=== PATIENT | male | born 1990 | race Caucasian/White ===

== ENCOUNTER 2017-12-12 18:46 | Emergency (ER) | payer MEDICAID ==
[2017-12-12] MEDS ORDERED: Diphtheria,Pertussis(Acell),Tetanus Vaccine 0.5 ML SDV IM ONE (19:43)
--- NOTE | 2017-12-12 19:59 | EDM.PDOC ---
ED HPI GENERAL MEDICAL PROBLEM - General Chief Complaint: Laceration Stated Complaint: CUT LEFT THUMB Time Seen by Provider: 12/12/17 19:40 Source of Information: Reports: Patient History Limitations: Reports: No Limitations - History of Present Illness INITIAL COMMENTS - FREE TEXT/NARRATIVE: 27 yo male injured his L thumb with a drill before arrival. His tetanus is not UTD. Onset: Today Onset Date: 12/12/17 Onset Time: 18:30 Duration: Minutes: Location: Reports: Upper Extremity, Left Quality: Reports: Dull Severity: Mild Improves with: Reports: Other (time) Worsens with: Reports: None Context: Reports: Trauma Associated Symptoms: Reports: No Other Symptoms Treatments BLOCK INSPECTOR: Reports: Other (see below) (none) Left Hand Pain Score (Numeric/FACES): 6 - Related Data Allergies Allergy/AdvReac Type Severity Reaction Status Date / Time No Known Allergies Allergy Verified 01/17/14 22:10 Home Meds: Home Meds Ibuprofen 600 mg PO Q6H PRN 10/11/13 [History] Past Medical History - Past Health History Medical/Surgical History: Denies Medical/Surgical History Social & Family History - Tobacco Use Smoking Status *Q: Unknown Ever Smoked Years of Tobacco use: 10 Used Tobacco, but Quit: No Second Hand Smoke Exposure: No - Alcohol Use Days Per Week of Alcohol Use: 1 Number of Drinks Per Day: 0 Total Drinks Per Week: 0 - Recreational Drug Use Recreational Drug Use: No ED ROS GENERAL - Review of Systems Review Of Systems: See Below Constitutional: Reports: No Symptoms Musculoskeletal: Reports: Hand Pain (L distal thumb ) Skin: Reports: Wound (break in skin adjacent to nail on L thumb) Neurological: Reports: No Symptoms ED EXAM, SKIN/RASH Exam: See Below Exam Limited By: No Limitations General Appearance: Alert, WD/WN, No Apparent Distress Neurological: Alert, Oriented, CN II-XII Intact, Normal Cognition, No Motor/ Sensory Deficits Psychiatric: Normal Affect, Normal Mood Skin: Warm, Dry, Normal Color, No Rash, Wound/Incision (small break in skin adjacent to the L thumbnail. No active bleeding. No gaping wounds. No FB's) Location, Skin: Upper Extremity, Left Characteristics: Fine Associated features: Tenderness Course - Vital Signs Text/Narrative:: Wound cleaned and dressed per nursing. Adacel IM given. Last Recorded V/S: Last Vital Signs Temp 36.3 C 12/12/17 19:29 Pulse 71 12/12/17 19:29 Resp 18 12/12/17 19:29 BP 119/76 12/12/17 19:29 Pulse Ox 99 12/12/17 19:29 - Orders/Labs/Meds Orders: Active Orders 24 hr Category Date Time Status Vaccines to be Administered [RC] PER UNIT ROUTINE Care 12/12/17 19:43 Active Meds: Medications Discontinued Medications Generic Name Dose Route Start Last Admin Trade Name Carolyn PRN Reason Stop Dose Admin Diphtheria/Tetanus/Acell Pertussis 0.5 ml 12/12/17 19:43 Adacel IM 12/12/17 19:44 .ONCE ONE Departure - Departure Time of Disposition: 20:00 Disposition: Home, Self-Care 01 Condition: Good Clinical Impression: Laceration of thumb Qualifiers: Encounter type: initial encounter Damage to nail status: without damage Foreign body presence: without foreign body Laterality: left Qualified Code(s): S61.012A - Laceration without foreign body of left thumb without damage to nail , initial encounter - Discharge Information Referrals: PCP,None [Primary Care Provider] - Forms: ED Department Discharge Additional Instructions: Keep wound clean x 3 days. Take acetaminophen as needed for pain relief per package instructions. Clean wound twice daily with soap and water, dry, apply antibiotic ointment and a new dressing. Recheck here or in the clinic for signs of infection. - My Orders Last 24 Hours: My Active Orders 12/12/17 19:43 Vaccines to be Administered [RC] PER UNIT ROUTINE - Assessment/Plan Last 24 Hours: My Active Orders 12/12/17 19:43 Vaccines to be Administered [RC] PER UNIT ROUTINE
== END 2017-12-12 20:10 | disposition home or self-care (01) ==
LOC: JP.ED 18:46
DX: S61.012A Laceration without foreign body of left thumb without damage to nail, initial encounter (principal); Z23 Encounter for immunization; W31.9XXA Contact with unspecified machinery, initial encounter
CPT/HCPCS: 90471; 90715; 99283-25

== ENCOUNTER 2018-02-27 11:10 | Emergency (ER) | payer MEDICAID ==
--- NOTE | 2018-02-27 13:04 | EDM.PDOCBH ---
ED HPI GENERAL MEDICAL PROBLEM - General Chief Complaint: Behavioral/Psych Stated Complaint: EVAL Time Seen by Provider: 02/27/18 11:30 Source of Information: Reports: Patient, Family History Limitations: Reports: No Limitations - History of Present Illness INITIAL COMMENTS - FREE TEXT/NARRATIVE: 27-year-old male who claims she's been acting out in his sleep and a violent behavior, threatening his etc. He was recently started on clonazepam but that "made it worse". He has seen his primary provider about this, came into the emergency room today because he wouldn't answer his phone call. Onset: Unknown/Unsure (Patient claims it's been going on for a couple of years) - Related Data Allergies Allergy/AdvReac Type Severity Reaction Status Date / Time No Known Allergies Allergy Verified 01/17/14 22:10 Home Meds: Home Meds Ibuprofen 600 mg PO Q6H PRN 10/11/13 [History] Past Medical History - Past Health History Medical/Surgical History: Denies Medical/Surgical History Social & Family History - Tobacco Use Smoking Status *Q: Unknown Ever Smoked Years of Tobacco use: 14 Packs/Tins Daily: 1 Used Tobacco, but Quit: No Second Hand Smoke Exposure: No - Caffeine Use Caffeine Use: Reports: Soda - Alcohol Use Days Per Week of Alcohol Use: 1 Number of Drinks Per Day: 0 Total Drinks Per Week: 0 - Recreational Drug Use Recreational Drug Use: No ED ROS GENERAL - Review of Systems Review Of Systems: ROS reveals no pertinent complaints other than HPI. ED EXAM, BEHAVIORAL HEALTH - Physical Exam Exam: See Below Exam Limited By: No Limitations General Appearance: Alert, No Apparent Distress Respiratory/Chest: No Respiratory Distress Cardiovascular: Regular Rate, Rhythm Neurological: Alert, Oriented x 3 Psychiatric: Alert, Normal Affect COURSE, BEHAVIORAL HEALTH COMP - Course Vital Signs: Last Vital Signs Temp 96.4 F 02/27/18 11:28 Pulse 68 02/27/18 11:28 Resp 18 02/27/18 11:28 BP 114/76 02/27/18 11:28 Pulse Ox 100 02/27/18 11:28 Orders, Labs, Meds: Active Orders 24 hr Category Date Time Status DRUG SCREEN, URINE [URCHEM] Stat Lab 02/27/18 12:11 Ordered Laboratory Tests 02/27/18 02/27/18 02/27/18 Range/Units 12:09 12:09 12:11 WBC 6.3 (4.5-11.0) K/uL RBC 4.88 (4.30-5.90) M/uL Hgb 15.3 H (12.0-15.0) g/dL Hct 44.2 (40.0-54.0) % MCV 91 (80-98) fL MCH 31 (27-31) pg MCHC 35 (32-36) % Plt Count 252 (150-400) K/uL Neut % (Auto) 69 H (36-66) % Lymph % (Auto) 18 L (24-44) % [place] % (Auto) 10 H (2-6) % Eos % (Auto) 2 (2-4) % Baso % (Auto) 0 (0-1) % Sodium 143 (140-148) mmol/L Potassium 3.6 (3.6-5.2) mmol/L Chloride 105 (100-108) mmol/L Carbon Dioxide 28 (21-32) mmol/L Anion Gap 10.3 (5.0-14.0) mmol/L BUN 15 (7-18) mg/dL Creatinine 0.8 (0.8-1.3) mg/dL Est Cr Clr Drug Dosing 106.48 mL/min Estimated GFR (MDRD) > 60 (>60) Glucose 86 (74-106) mg/dL Calcium 8.8 (8.5-10.1) mg/dL Urine Opiates Screen Negative (NEGATIVE) Ur Oxycodone Screen Negative (NEGATIVE) Urine Methadone Screen Negative (NEGATIVE) Ur Propoxyphene Screen Negative (NEGATIVE) Ur Barbiturates Screen Negative (NEGATIVE) Ur Tricyclics Screen Negative (NEGATIVE) Ur Phencyclidine Scrn Negative (NEGATIVE) Ur Amphetamine Screen Negative (NEGATIVE) U Methamphetamines Scrn Negative (NEGATIVE) Urine MDMA Screen Negative (NEGATIVE) U Benzodiazepines Scrn Negative (NEGATIVE) U Cocaine Metab Screen Negative (NEGATIVE) U Marijuana (THC) Screen Negative (NEGATIVE) Re-Assessment/Re-Exam: Patient does have an appointment set up in March, I also talked to Dr. Douglas his primary provider. Since he feels he worsened on the clonazepam, I told him to stop the medication. They may want to consider separate sleeping arrangements until things improve. He then said he was even scared to sleep alone because he might "walk into a cristina". I told him that even know people do things in their sleep they rarely actually do violent things because there subconscious will keep him from doing it and I think he is probably exaggerating the condition for other reasons. Departure - Departure Time of Disposition: 13:29 Disposition: Home, Self-Care 01 Condition: Good Clinical Impression: Sleep disorder - Discharge Information Instructions: Night Terror, Pediatric Referrals: PCP,None [Primary Care Provider] - Forms: ED Department Discharge Care Plan Goals: Stop clonazepam, it would be best to be sleeping under no influence of any drug. You may want to consider separate sleeping arrangements until things improve. Delmer Martinez may be able to see you sooner than March, he returns on Tuesday and you may be able to call the clinic and get something sooner. - My Orders Last 24 Hours: My Active Orders 02/27/18 12:11 DRUG SCREEN, URINE [URCHEM] Stat - Assessment/Plan Last 24 Hours: My Active Orders 02/27/18 12:11 DRUG SCREEN, URINE [URCHEM] Stat
== END 2018-02-27 13:25 | disposition home or self-care (01) ==
LOC: JP.ED 11:10
DX: G47.9 Sleep disorder, unspecified (principal)
CPT/HCPCS: 36415; 80048; 80305; 85025; 99285

== ENCOUNTER 2018-04-23 15:35 | Emergency (ER) | payer MEDICAID ==
--- NOTE | 2018-04-23 16:07 | EDM.PDOC ---
ED HPI GENERAL MEDICAL PROBLEM - General Chief Complaint: Laceration Stated Complaint: CUT ON GENITALS Time Seen by Provider: 04/23/18 15:40 Source of Information: Reports: Patient History Limitations: Reports: No Limitations - History of Present Illness INITIAL COMMENTS - FREE TEXT/NARRATIVE: 27-year-old male developed some penile bleeding after intercourse. No significant pain or symptoms. He thought he had a laceration so came in to be checked. No dysuria. No recent symptoms or illness. Onset: Sudden Duration: Hour(s): (Within the last hour) Associated Symptoms: Reports: No Other Symptoms Penis Pain Score (Numeric/FACES): 0 - Related Data Allergies Allergy/AdvReac Type Severity Reaction Status Date / Time No Known Allergies Allergy Verified 01/17/14 22:10 Home Meds: Home Meds Ibuprofen 600 mg PO Q6H PRN 10/11/13 [History] Past Medical History - Past Health History Medical/Surgical History: Denies Medical/Surgical History Respiratory History: Reports: Sleep Apnea Other Respiratory History: C PAP at night Genitourinary History: Reports: Other (See Below) Other Genitourinary History: blood scant from meatus states after sex believe to have past small kidney stone Social & Family History - Tobacco Use Years of Tobacco use: 14 Packs/Tins Daily: 0.2 - Caffeine Use Caffeine Use: Reports: None - Recreational Drug Use Recreational Drug Use: No ED ROS GENERAL - Review of Systems Review Of Systems: See Below Constitutional: Denies: Fever Respiratory: Denies: Shortness of Breath GI/Abdominal: Denies: Abdominal Pain, Nausea, Vomiting : Reports: Hematuria Skin: Denies: Bruising Neurological: Reports: No Symptoms ED EXAM, SKIN/RASH Exam: See Below Exam Limited By: No Limitations General Appearance: Alert, No Apparent Distress Respiratory/Chest: No Respiratory Distress (Male) Exam: Other (Exam of the genitalia is completely normal other than some bleeding at the urethral meatus. No tenderness of the penis, no swelling or bruising or asymmetry) Course - Vital Signs Last Recorded V/S: Last Vital Signs Temp 99.1 F 04/23/18 15:42 Pulse 71 04/23/18 15:42 Resp 18 04/23/18 15:42 BP 103/64 04/23/18 15:42 Pulse Ox - Re-Assessments/Exams Free Text/Narrative Re-Assessment/Exam: 04/23/18 16:05 Discussed with urology, he felt it was possibly prostatitis although it appears more like a distal urethral injury. He did urinate, passed a small clot in the urine was clear. He'll be placed on Cipro 500 twice a day at the request of the urologist for 7-10 days, and avoid intercourse until completely healed. Departure - Departure Time of Disposition: 16:19 Disposition: Home, Self-Care 01 Condition: Good Clinical Impression: Urethral injury, closed Qualifiers: Encounter type: initial encounter Qualified Code(s): S37.30XA - Unspecified injury of urethra, initial encounter - Discharge Information Instructions: Hematuria, Adult Referrals: Orlando Douglas MD [Primary Care Provider] - Forms: ED Department Discharge Care Plan Goals: Take antibiotic twice a day for at least 7 days. Return anytime if worsening such as increased pain, bleeding or fevers. Avoid intercourse for one week.
== END 2018-04-23 16:19 | disposition home or self-care (01) ==
LOC: JP.ED 15:35
DX: S37.30XA Unspecified injury of urethra, initial encounter (principal); W26.9XXA Contact with unspecified sharp object(s), initial encounter
CPT/HCPCS: 99283

== ENCOUNTER 2018-05-12 10:37 | Emergency (ER) | payer MEDICAID ==
[2018-05-12] MEDS ORDERED: Ondansetron 4 MG Tab.DIS PO ONE (11:22)
[2018-05-12] MEDS ORDERED: Lactated Ringers 1,000 ML IV ONE (11:25)
[2018-05-12] MEDS ORDERED: HYDROmorphone 0.5 MG/0.5 ML Syringe IVPUSH ONE ×2 (11:26→12:37)
--- NOTE | 2018-05-12 11:30 | EDM.PDOC ---
ED HPI GENERAL MEDICAL PROBLEM - General Chief Complaint: Gastrointestinal Problem Stated Complaint: VOMITING Time Seen by Provider: 05/12/18 11:15 Source of Information: Reports: Patient, RN History Limitations: Reports: No Limitations - History of Present Illness INITIAL COMMENTS - FREE TEXT/NARRATIVE: 27 yo male awoke today with nausea, vomiting, diarrhea and R sided abdominal pain. Pain is worse with any movement. No blood in stool or emesis. No fever. No hx of the same. The location of the pain does not move. Onset: Today Onset Date: 05/12/18 Onset Time: 07:00 Duration: Hour(s):, Constant Location: Reports: Abdomen Quality: Reports: Ache Severity: Moderate Improves with: Reports: Rest Worsens with: Reports: Movement Context: Reports: Other (unknown) Associated Symptoms: Reports: Nausea/Vomiting Treatments MAINTENANCE APPRENTICE: Reports: Other (see below) (none) - Related Data Allergies Allergy/AdvReac Type Severity Reaction Status Date / Time No Known Allergies Allergy Verified 05/12/18 12:32 Past Medical History - Past Health History Medical/Surgical History: Denies Medical/Surgical History Respiratory History: Reports: Sleep Apnea Other Respiratory History: C PAP at night Genitourinary History: Reports: Other (See Below) Other Genitourinary History: blood scant from meatus states after sex believe to have past small kidney stone Social & Family History - Tobacco Use Smoking Status *Q: Never Smoker - Caffeine Use Caffeine Use: Reports: None ED ROS GENERAL - Review of Systems Review Of Systems: See Below Constitutional: Reports: Decreased Appetite HEENT: Reports: No Symptoms Respiratory: Reports: No Symptoms Cardiovascular: Reports: No Symptoms GI/Abdominal: Reports: Abdominal Pain, Diarrhea, Nausea, Vomiting. Denies: Black Stool, Bloody Stool, Constipation, Distension, Flatus, Hematemesis, Hematochezia, Melena : Reports: No Symptoms Musculoskeletal: Reports: No Symptoms Skin: Reports: No Symptoms Neurological: Reports: No Symptoms ED EXAM, GI/ABD - Physical Exam Exam: See Below Exam Limited By: No Limitations General Appearance: Alert, WD/WN, No Apparent Distress Eyes: Bilateral: Normal Appearance Ears: Normal External Exam, Normal Canal, Hearing Grossly Normal Nose: Normal Inspection, Normal Mucosa, No Blood Throat/Mouth: Normal Inspection, Normal Lips, Normal Oropharynx, Normal Voice, No Airway Compromise Head: Atraumatic, Normocephalic Neck: Normal Inspection, Supple, Non-Tender Respiratory/Chest: No Respiratory Distress, Lungs Clear, Normal Breath Sounds, No Accessory Muscle Use Cardiovascular: Regular Rate, Rhythm GI/Abdominal Exam: Normal Bowel Sounds, Soft, No Distention, Tender (R mid abdomen) Extremities: Normal Inspection, Normal Range of Motion, Non-Tender, No Pedal Edema Neurological: Alert, Oriented, CN II-XII Intact, Normal Cognition, No Motor/ Sensory Deficits Psychiatric: Normal Affect, Normal Mood Skin Exam: Warm, Dry, Intact, Normal Color, No Rash Lymphatic: No Adenopathy Course - Vital Signs Last Recorded V/S: Last Vital Signs Temp 36.0 C 05/12/18 11:19 Pulse 72 05/12/18 11:19 Resp 14 05/12/18 11:19 BP 107/67 05/12/18 11:19 Pulse Ox 100 05/12/18 11:19 - Orders/Labs/Meds Orders: Active Orders 24 hr Category Date Time Status UA W/MICROSCOPIC [URIN] Stat Lab 05/12/18 12:37 Ordered Labs: Laboratory Tests 05/12/18 05/12/18 05/12/18 Range/Units 11:35 11:35 12:37 WBC 4.7 (4.5-11.0) K/uL RBC 4.89 (4.30-5.90) M/uL Hgb 15.0 (12.0-15.0) g/dL Hct 44.2 (40.0-54.0) % MCV 90 (80-98) fL MCH 31 (27-31) pg MCHC 34 (32-36) % Plt Count 260 (150-400) K/uL Sodium 143 (140-148) mmol/L Potassium 3.5 L (3.6-5.2) mmol/L Chloride 103 (100-108) mmol/L Carbon Dioxide 26 (21-32) mmol/L Anion Gap 17.5 H (5.0-14.0) mmol/L BUN 13 (7-18) mg/dL Creatinine 0.9 (0.8-1.3) mg/dL Est Cr Clr Drug Dosing 90.07 mL/min Estimated GFR (MDRD) > 60 (>60) Glucose 88 (74-106) mg/dL Calcium 9.0 (8.5-10.1) mg/dL C-Reactive Protein 0.08 (0.0-0.3) mg/dL Urine Color Yellow Urine Appearance Clear Urine pH 9.0 H (4.5-8.0) Ur Specific [place] 1.015 (1.008-1.030) Urine Protein Negative (NEGATIVE) mg/dL Urine Glucose (UA) Normal (NEGATIVE) mg/dL Urine Ketones Negative (NEGATIVE) mg/dL Urine Occult Blood Negative (NEGATIVE) Urine Nitrite Negative (NEGAITVE) Urine Bilirubin Negative (NEGATIVE) Urine Urobilinogen Normal (NORMAL) mg/dL Ur Leukocyte Esterase Negative (NEGATIVE) Urine RBC 0-5 (0-5) Urine WBC Not seen (0-5) Ur Epithelial Cells Not seen Amorphous Sediment Few Urine Bacteria Not seen Urine Mucus Not seen Meds: Medications Discontinued Medications Generic Name Dose Route Start Last Admin Trade Name Freq PRN Reason Stop Dose Admin Hydromorphone HCl 0.5 mg 05/12/18 11:26 05/12/18 11:42 Dilaudid IVPUSH 05/12/18 11:27 0.5 mg ONETIME ONE Administration Hydromorphone HCl 0.5 mg 05/12/18 12:37 05/12/18 12:44 Dilaudid IVPUSH 05/12/18 12:38 0.5 mg ONETIME ONE Administration Lactated Ringer's 1,000 mls @ 1,000 mls/hr 05/12/18 11:25 05/12/18 11:42 Ringers, Lactated IV 05/12/18 12:24 1,000 mls/hr BOLUS ONE Administration Ondansetron HCl 4 mg 05/12/18 11:22 05/12/18 11:42 Zofran Odt PO 05/12/18 11:23 4 mg ONETIME ONE Administration - Radiology Interpretation Free Text/Narrative:: Renal and GB ultrasounds-both within normal limits. Departure - Departure Time of Disposition: 14:04 Disposition: Home, Self-Care 01 Condition: Fair Clinical Impression: Viral gastroenteritis - Discharge Information Referrals: Orlando Douglas MD [Primary Care Provider] - Forms: ED Department Discharge - My Orders Last 24 Hours: My Active Orders 05/12/18 12:37 UA W/MICROSCOPIC [URIN] Stat - Assessment/Plan Last 24 Hours: My Active Orders 05/12/18 12:37 UA W/MICROSCOPIC [URIN] Stat
--- NOTE | 2018-05-12 14:02 | US ---
Abdomen Ltd CLINICAL HISTORY: Abdominal pain COMPARISON: None. TECHNIQUE: Real-time images were obtained through the right upper quadrant. FINDINGS: The liver is free of mass or biliary dilatation. There is normal parenchymal echogenicity. The gallbladder has a normal appearance. The common bile duct measures 3 mm. The pancreas is free of mass. The right kidney has a normal contour. The IVC is normal. IMPRESSION: Essentially negative right upper quadrant ultrasound
== END 2018-05-12 14:16 | disposition home or self-care (01) ==
LOC: JP.ED 10:37
DX: A08.4 Viral intestinal infection, unspecified (principal)
CPT/HCPCS: 36415; 76705; 80048; 81001; 85027; 86140; 96361; 96374; 96376; 99284; A9270; J1170; J7120